=== PATIENT | female | born 1955 | race Caucasian/White ===

== ENCOUNTER → 2022-08-29 23:26 | Outpatient (CLI) | payer MEDICARE, SELFPAY ==
[2022-08-29 17:17] LABS: Anion Gap 16.2 mEq/L (5-15); Blood Urea Nitrogen 13 mg/dl (7-17); Calcium 9.2 mg/dl (8.4-10.2); Carbon Dioxide 26 mmol/L (22.0-30.0); Chloride 102 mmol/L (98-107); Estimated Glomerular Filt Rate 123 ml/min (>60); GFR (African American) 149 ML/MIN (>60); Glucose 103 mg/dl (74-100); Potassium 4.2 mmoL/L (3.5-5.1); Sodium 140 mmol/L (136-145)
== END ==
PROVIDERS: PCP Family Medicine; Visit Provider Family Medicine
DX: I10 Essential (primary) hypertension (principal)
CPT/HCPCS: 80048

== ENCOUNTER 2023-08-27 10:19 | Outpatient (CLI) | payer MEDICARE, SELFPAY ==
[2023-08-27 17:44] LABS: Anion Gap 14.4 mEq/L (5-15); Blood Urea Nitrogen 13 mg/dl (7-17); Calcium 9.5 mg/dl (8.4-10.2); Carbon Dioxide 25 mmol/L (22.0-30.0); Chloride 104 mmol/L (98-107); Estimated Glomerular Filt Rate 99 ml/min (>60); GFR (African American) 120 ML/MIN (>60); Glucose 106 mg/dl (74-100); Potassium 4.4 mmoL/L (3.5-5.1); Sodium 139 mmol/L (136-145)
== END 2023-08-27 23:59 | disposition home or self-care (01) ==
LOC: LAB.DROPOF 08-28 10:19
PROVIDERS: PCP Family Medicine; Visit Provider Family Medicine
DX: I10 Essential (primary) hypertension (principal); Z87.891 Personal history of nicotine dependence
CPT/HCPCS: 80048

== ENCOUNTER 2024-10-05 09:45 | Outpatient (CLI) | payer MEDICARE, SELFPAY ==
[2024-10-05 17:23] LABS: Hematocrit 42.2 % (37.0-47.0); Hemoglobin 13.7 g/dL (12.2-16.2); Immature Granulocytes % 0.4 %; Mean Corpuscular HGB Conc 32.5 g/dL (31.8-35.4); Mean Corpuscular Hemoglobin 29.1 pg (27.0-31.2); Mean Corpuscular Volume 89.8 fl (81-99); Nucleated Red Blood Cells % 0 %; Platelet Count 320 K/mm3 (142-424); Red Blood Count 4.70 M/mm3 (4.20-5.40); Red Cell Distribution Width-SD 45.5 fL; White Blood Count 9.2 K/mm3 (4.8-10.8)
[2024-10-05 18:21] LABS: 25-OH Vitamin D, Total 79.1 ng/mL (30-100)
[2024-10-05 18:25] LABS: Alanine Aminotransferase 26 U/L (12-78); Albumin Level 4.8 g/dl (3.5-5.0); Albumin/Globulin Ratio 1.9 (1.1-1.8); Alkaline Phosphatase 132 U/L (38-126); Anion Gap 21.7 mEq/L (5-15); Aspartate Amino Transferase 30 U/L (14-36); Bilirubin,Total 0.5 mg/dl (0.2-1.3); Blood Urea Nitrogen 13 mg/dl (7-17); Calcium 8.8 mg/dl (8.4-10.2); Carbon Dioxide 23 mmol/L (22.0-30.0); Chloride 100 mmol/L (98-107); Cholesterol 264 mg/dl (140-200); Creatinine,Serum 0.60 mg/dl (0.52-1.04); Estimated Glomerular Filt Rate 99 ml/min (>60); GFR (African American) 120 ML/MIN (>60); Globulin 2.5 g/dL (1.3-3.2); Glucose 79 mg/dl (74-100); HDL Cholesterol 38 mg/dl (40-60); Potassium 4.7 mmoL/L (3.5-5.1); Sodium 140 mmol/L (136-145); Total Protein,Serum 7.3 g/dl (6.3-8.2); Triglycerides 290 mg/dl (30-150)
[2024-10-05 18:55] LABS: Free T4 (Free Thyroxine) 1.16 ng/dl (0.78-2.19)
[2024-10-05 18:56] LABS: Thyroid Stimulating Hormone 1.16 uIU/mL (0.465-4.68)
[2024-10-05 18:57] LABS: Hepatitis C Ab Qual. W/ RFX NEGATIVE (Negative)
--- OUTSIDE RECORDS SUMMARY | 2024-10-06 09:51 | XMS_ITS | Clinical Summary ---
Author Organization Healthcare Address [address] [place] [address] Care Team Providers Care Manager Books Name Role Phone Diana Sevilla Primary Care Provider [phone] Immunizations Immunization Administration Dates Next Due Influenza, seasonal, injectable 12/15/2014 Varicella Zoster Immune Globulin 11/18/2014 Family History Medical History Relation Name Comments Cardiac disorder Other 1 Glaucoma Other 2 Macular degeneration Other 3 Relation Name Status Comments Other 1 Other 2 Other 3 Social History Tobacco Use Types Packs/Day Years Used Date Smoking Tobacco: Former Comments:Former moderate cig arette smoker (10-19 per day) Alcohol Use Standard Drinks/Week Comments No 0 (1 standard drink = 0.6 oz pur e alcohol) Comments Unknown Sex and Gender Information Value Date Recorded Sex Assigned at Not on file Legal Sex Female 5:57 PM EDT Gender Identity Not on file Sexual Orientation Not on file Last Filed Vital Signs Vital Sign Reading Time Taken Comments Blood Pressure 164/83 11/13/2018 7:51 AM EDT Pulse 83 11/13/2018 7:51 AM EDT Temperature 36.8 C (98.3 F) 11/13/2018 7:51 AM EDT Respiratory Rate 14 05/15/2018 9:13 AM EST Oxygen Saturation - - Inhaled Oxygen Concentration - - Weight 67.7 kg (149 lb 4 oz) 11/13/2018 7:51 AM EDT Height 170.2 cm (5' 7 ) 11/13/2018 7:51 AM EDT Body Mass Index 23.38 11/13/2018 7:51 AM EDT Plan of Treatment Not on file Care Teams Manager Books Relationship Specialty Start Date End Date Diana Sevilla PA [address] [place] [address] PCP - General 08/12/20
[2024-10-07 05:09] LABS: Hepatitis B Surface Antigen Negative (Negative)
== END 2024-10-05 23:59 | disposition home or self-care (01) ==
LOC: LAB.DROPOF 10-06 09:49
PROVIDERS: PCP Family Medicine; Visit Provider Family Medicine
DX: E78.5 Hyperlipidemia, unspecified (principal); I10 Essential (primary) hypertension; Z11.4 Encounter for screening for human immunodeficiency virus [HIV]; Z11.59 Encounter for screening for other viral diseases
CPT/HCPCS: 80053; 80061; 80074; 82306; 84439; 84443; 85025; 87340; 87389